=== PATIENT | male | born 1955 | race Two or more races ===

== ENCOUNTER 2025-05-10 22:43 | Inpatient (IN) | payer MEDICARE, OTHER ==
[~2025-05-10] VITALS: Ht 177.8 cm; Wt 74.8 kg
[2025-05-10 23:37] LABS: PLATELET COUNT (AUTO) 255 K/uL (150-450); RED BLOOD CELL COUNT(AUTO) 4.29 MIL/uL (4.5-6.0); RED CELL DISTRIBUTION WIDTH 12.8 % (11.5-15.0); WHITE BLOOD COUNT (AUTO) 7.5 K/uL (4.3-11.0)
[2025-05-10 23:44] LABS: CALCIUM, SERUM 8.6 mg/dL (8.5-10.1); CREATININE 1.0 mg/dL (0.6-1.3); SODIUM SERUM 138 mmol/L (136-145); UREA NITROGEN, BLOOD 15 mg/dL (7-18)
[2025-05-10 23:52] LABS: ASPARTATE AMINOTRANSFERASE 26 U/L (15-37); TOTAL PROTEIN, SERUM 6.9 g/dL (6.4-8.2)
[2025-05-10 23:54] LABS: ALCOHOL, BLOOD < 3 mg/dL (0-10)
[2025-05-11 00:05] VITALS: O2SAT 98
[2025-05-11 01:26] LABS: APPEARANCE,URINE CLEAR (CLEAR); BLOOD, URINE TRACE-INTA Ery/uL (NEGATIVE); LEUKOCYTE ESTERASE ,URINE NEGATIVE (NEGATIVE); NITRITE, URINE NEGATIVE (NEGATIVE); UGLUCOSE NEGATIVE (NEGATIVE)
[2025-05-11 01:37] LABS: AMPHETAMINE, URINE NEGATIVE (NEGATIVE); BARBITURATE, URINE NEGATIVE (NEGATIVE); BENZODIAZEPINE, URINE NEGATIVE (NEGATIVE); CANNABINOID, URINE NEGATIVE (NEGATIVE); COCCAINE, URINE NEGATIVE (NEGATIVE); OPIATE, URINE NEGATIVE (NEGATIVE)
[2025-05-11 01:38] LABS: ADD URINE CULTURE NO; SQUAMOUS EPITHELIAL CELL,UR 0-2 /HPF (None Seen)
[2025-05-11] MEDS: ZOLPIDEM TARTRATE 5 MG TABLET PO PRN (02:53)
[2025-05-11] MEDS: QUETIAPINE FUMARATE 25 MG TABLET PO PRN (02:53)
[2025-05-11] MEDS ORDERED: QUETIAPINE FUMARATE 25 MG TABLET PO PRN (03:00)
[2025-05-11] MEDS: OLANZAPINE 10 MG VIAL IM STA (03:09)
[2025-05-11] MEDS: BLOOD SUGAR DIAGNOSTIC 1 EACH STRIP IN ONE (03:10)
[2025-05-11 08:00] VITALS: BP 126/65; TEMP 98; O2SAT 99
[2025-05-11] MEDS: OLANZAPINE 10 MG VIAL IM ONE (09:01)
[2025-05-11] MEDS ORDERED: ACET325T53 PO (10:15)
[2025-05-11] MEDS ORDERED: MELA3CAP2 PO (10:15)
[2025-05-11] MEDS ORDERED: DONE10TA11 PO (10:15)
[2025-05-11] MEDS ORDERED: LOSA100T3 PO (10:15)
[2025-05-11] MEDS ORDERED: LAMO150T2 PO (10:15)
[2025-05-11] MEDS ORDERED: BISA-79 PO (10:15)
[2025-05-11] MEDS ORDERED: ATOR40TA PO (10:15)
[2025-05-11] MEDS ORDERED: VOLTAREN TP (10:15)
[2025-05-11] MEDS ORDERED: SENN-301 PO (10:15)
[2025-05-11] MEDS ORDERED: AMLO-213 PO (10:15)
[2025-05-11] MEDS ORDERED: ENOX40DI SQ (10:15)
[2025-05-11] MEDS ORDERED: BACL5TAB PO (10:15)
[2025-05-11] MEDS ORDERED: BISA10SU61 RC (10:15)
[2025-05-11] MEDS ORDERED: OLAN5TAB3 PO ×2 (10:15)
[2025-05-11] MEDS ORDERED: EZET10TA16 PO (10:15)
[2025-05-11] MEDS: ACETAMINOPHEN 325 MG TABLET PO PRN (12:53)
[2025-05-11] MEDS ORDERED: BACLOFEN (10 MG) 10 MG TABLET PO PRN (13:30)
[2025-05-11] MEDS ORDERED: OLANZAPINE ZYDIS 5 MG TAB.RAPDIS PO PRN (14:30)
[2025-05-11 16:00] VITALS: BP 159/75; TEMP 98; O2SAT 98
[2025-05-11 20:55] VITALS: BP 157/75; TEMP 98.1; O2SAT 100
[2025-05-11] MEDS: ATORVASTATIN 40 MG TABLET PO SCH (21:21)
[2025-05-11] MEDS: OLANZAPINE 2.5 MG TABLET PO SCH (21:21)
[2025-05-11] MEDS: DONEPEZIL 5 MG TABLET PO SCH (21:21)
[2025-05-12 08:00] VITALS: BP 135/63; TEMP 97.7; O2SAT 98
[2025-05-12 08:13] LABS: ASPARTATE AMINOTRANSFERASE 25.0 U/L (15-37); CALCIUM, SERUM 9.0 mg/dL (8.5-10.1); CREATININE 0.9 mg/dL (0.6-1.3); SODIUM SERUM 139.0 mmol/L (136-145); TOTAL PROTEIN, SERUM 6.5 g/dL (6.4-8.2); UREA NITROGEN, BLOOD 14.0 mg/dL (7-18)
[2025-05-12 08:23] LABS: LDL 42 mg/dL (0-99)
[2025-05-12] MEDS: LOSARTAN POTASSIUM 50 MG TABLET PO SCH (09:39)
[2025-05-12] MEDS: AMLODIPINE BESYLATE 10 MG TABLET PO SCH (09:40)
[2025-05-12] MEDS: GUAIFENESIN/D-METHORPHAN HB 5 ML UDC PO PRN (15:34)
[2025-05-12 16:00] VITALS: BP 122/65; TEMP 97.9; O2SAT 99
[2025-05-12 21:09] VITALS: BP 139/85; TEMP 97.9; O2SAT 99
[2025-05-12] MEDS: OLANZAPINE 5 MG TABLET PO SCH (21:37)
[2025-05-13] MEDS: MAG HYDROX/AL HYDROX/SIMETH 30 ML UDC PO PRN (00:28)
[2025-05-13 08:00] VITALS: BP 134/75; TEMP 98.8; O2SAT 98
[2025-05-13] MEDS: OLANZAPINE 2.5 MG TABLET PO SCH (09:00)
[2025-05-13] MEDS: DIVALPROEX SODIUM 125 MG TABLET.DR PO SCH (14:22)
[2025-05-13 16:00] VITALS: BP 126/63; TEMP 98.7; O2SAT 99
[2025-05-13 21:04] VITALS: BP 130/73; TEMP 98.2; O2SAT 98
[2025-05-14] MEDS: MAGNESIUM HYDROXIDE 30 ML UDC PO PRN (05:17)
[2025-05-14 08:00] VITALS: BP 152/88; TEMP 97.9; O2SAT 97
[2025-05-14] MEDS: METOCLOPRAMIDE HCL 10 MG TABLET PO PRN (08:58)
[2025-05-14 16:00] VITALS: BP 134/75; TEMP 97.9; O2SAT 99
[2025-05-14 20:54] VITALS: BP 146/78; TEMP 97.8; O2SAT 99
[2025-05-14] MEDS: ZOLPIDEM TARTRATE 5 MG TABLET PO PRN (22:10)
[2025-05-15 08:00] VITALS: BP 141/80; TEMP 97.8; O2SAT 97
[2025-05-15] MEDS ORDERED: LOSA100T3 PO (08:46)
[2025-05-15] MEDS ORDERED: Olanzapine PO (08:46)
[2025-05-15] MEDS ORDERED: OLAN5TAB6 PO (08:46)
[2025-05-15] MEDS ORDERED: ATOR40TA PO (08:46)
[2025-05-15] MEDS ORDERED: LAMO150T2 PO (08:46)
[2025-05-15] MEDS ORDERED: DONE10TA11 PO (08:46)
[2025-05-15] MEDS ORDERED: AMLO-213 PO (08:46)
[2025-05-15] MEDS ORDERED: DIVA125T2 PO (08:46)
[2025-05-15] MEDS ORDERED: EZET10TA16 PO (08:46)
[2025-05-15] MEDS ORDERED: OLAN2.5T3 PO (08:47)
[2025-05-15 09:27] VITALS: BP 141/80
== END 2025-05-15 11:55 | disposition home or self-care (01) | DRG 885 ==
LOC: ER 22:45 → GPS 05-11 00:44
PROVIDERS: ADMIT Psychiatry & Neurology Psychiatry; ATTEND Internal Medicine
DX: F31.10 Bipolar disorder, current episode manic without psychotic features, unspecified (principal); F06.8 Other specified mental disorders due to known physiological condition; G93.49 Other encephalopathy; F29 Unspecified psychosis not due to a substance or known physiological condition; G31.84 Mild cognitive impairment of uncertain or unknown etiology; Z79.01 Long term (current) use of anticoagulants; I10 Essential (primary) hypertension; E78.5 Hyperlipidemia, unspecified; Z79.899 Other long term (current) drug therapy
CPT/HCPCS: 36415; 80048-TC; 80053-TC; 80061-TC; 80076-TC; 81001; 85025-TC; 87081-TC; 98960; G0480; J3490; J8597